=== PATIENT | male | born 1985 | race Caucasian/White ===

== ENCOUNTER → 2024-12-30 10:56 | Outpatient (REF) | payer BC, SELFPAY ==
[2024-12-30 12:17] LABS: % Basophils 0.8 % (0-2); % Eosinophils 2.1 % (0-6); % Immature Granulocytes 0.2 % (0-0.5); % Lymphocytes 35.3 % (20.5-51.1); % Monocytes 7.8 % (1.7-9.3); % Neutrophils 53.8 % (42.2-75.2); Absolute Eosinophils 0.1 10^3/uL (0-0.7); Absolute Lymphocytes 1.7 10^3/uL (1.2-3.4); Absolute Monocytes 0.4 10^3/uL (0.1-0.6); Absolute Neutrophils 2.6 10^3/uL (1.4-6.5); Hematocrit 43.9 % (39.0-52.0); Mean Corp Hgb Conc. 34.2 g/dL (33.0-37.0); Mean Corpuscular Hgb 31.1 pg (27.0-31.0); Mean Corpuscular Volume 90.9 fL (80.0-94.0); Mean Platelet Volume 10.2 fL (7.4-10.4); Nucleated Red Blood Cells % 0 % (-); Platelet Count 190 10^3/uL (130-400); Red Blood Cell Count 4.83 10^6/uL (4.70-6.10); Red Cell Dist. Width 12.2 % (11.5-14.5); White Blood Cell Count 4.9 10^3/uL (4.8-10.8)
[2024-12-30 12:42] LABS: ALT (SGPT) 42 U/L (0-50); AST (SGOT) 33 U/L (17-59); Albumin 4.8 g/dl (3.5-5.0); Alkaline Phosphatase 60 U/L (38-126); Blood Urea Nitrogen 17 mg/dl (9-20); Carbon Dioxide 32 mmol/L (22-30); Chloride 100 mmol/L (98-107); Glucose 89 mg/dl (70-99); Potassium 4.4 mmol/L (3.5-5.1); Sodium 138 mmol/L (135-145); Total Protein 7.4 g/dl (6.3-8.2); eGFR > 60.00
[2024-12-30 13:15] LABS: Hepatitis B Surface Antigen Negative (Negative)
[2024-12-30 13:32] LABS: Hepatitis B Core Ab, Total Negative (Negative); Hepatitis B Surface Antibody Negative; Hepatitis C Antibody Negative (Negative)
[2024-12-30 14:34] LABS: HIV Combo Reactive (Negative)
[2024-12-30 16:54] LABS: Hepatitis A Antibody, Total Negative (Negative)
[2025-01-01 07:38] LABS: Quantiferon Mitogen minus NIL 9.96 IU/mL; Quantiferon NIL 0.04 IU/mL; Quantiferon Plus TB2 minus NIL 0.01 IU/mL (<=0.34); Quantiferon TB Gold Plus Negative (Negative)
[2025-01-01 11:35] LABS: Mumps Virus IgG Negative
[2025-01-01 14:52] LABS: CD4 % of Cells Analyzed 24 % (32-64); CD4 Absolute Count 510 cells/uL (430-1800)
[2025-01-01 20:24] LABS: Rubella Negative
[2025-01-02 00:06] LABS: Glu-6-Phosphate Dehydrogenase 13.8 U/g Hb (9.9-16.6)
[2025-01-02 00:54] LABS: HIV Serologic Interpretation Pos HIV-1 Ab; HIV-1 Antibody Positive (Negative); HIV-2 Antibody Negative (Negative)
[2025-01-02 01:04] LABS: Rubeola Virus IgM (Measles) 0.28 AU (0.00-0.79)
[2025-01-02 06:20] LABS: Toxoplasma gondii Ab, IgG <3.0 IU/mL (<=8.8)
== END ==
LOC: REG 10:56
PROVIDERS: ATTENDING PHYSICIAN Internal Medicine Infectious Disease
DX: B20 Human immunodeficiency virus [HIV] disease (principal)
CPT/HCPCS: 36415; 80053; 82955; 85025; 86361; 86480; 86701; 86702; 86704; 86706; 86708; 86735; 86762; 86765; 86777; 86778; 86780; 86803; 87340; 87389